=== PATIENT | female | born 1990 | race Caucasian/White ===

== ENCOUNTER 2019-08-31 23:28 | Emergency (ER) | payer SELFPAY ==
[~2019-08-31] VITALS: Ht 152.4 cm; Wt 82.6 kg
[2019-08-31 23:32] VITALS: BP 105/63
--- NOTE | 2019-08-31 23:37 | NUR ---
PATIENT AMB WITH STEADY GAIT TO LOBBY.
--- NOTE | 2019-09-01 01:19 | NUR ---
PATIENT CALLED FIRST TIME. NO RESPONSE.
--- NOTE | 2019-09-01 01:30 | NUR ---
PATIENT CALLED SECOND TIME. NO RESPONSE.
--- NOTE | 2019-09-01 02:00 | NUR ---
PATIENT CALLED THIRD TIME. NO RESPONSE. LWBS
== END 2019-09-01 01:19 | disposition left against medical advice (07) ==
LOC: MED 23:28
DX: M79.605 Pain in left leg (principal); Z53.21 Procedure and treatment not carried out due to patient leaving prior to being seen by health care provider; W22.8XXA Striking against or struck by other objects, initial encounter; Y93.89 Activity, other specified; Y92.89 Other specified places as the place of occurrence of the external cause; Y99.8 Other external cause status
CPT/HCPCS: 99283

== ENCOUNTER 2019-12-20 21:00 | Emergency (ER) | payer SELFPAY ==
[~2019-12-20] VITALS: Ht 157.5 cm; Wt 87.1 kg
[2019-12-20 21:10] VITALS: BP 109/76
[2019-12-20 21:57] VITALS: BP 109/76
== END 2019-12-20 21:57 | disposition home or self-care (01) ==
LOC: MED 21:00
DX: S43.492A Other sprain of left shoulder joint, initial encounter (principal); I10 Essential (primary) hypertension; E11.9 Type 2 diabetes mellitus without complications; J45.909 Unspecified asthma, uncomplicated; Z88.6 Allergy status to analgesic agent; Y93.89 Activity, other specified; Y92.89 Other specified places as the place of occurrence of the external cause; Y99.8 Other external cause status
CPT/HCPCS: 73030; 99283; Q0092

== ENCOUNTER 2020-01-29 12:35 | Emergency (ER) | payer MEDICAID ==
[~2020-01-29] VITALS: Ht 152.4 cm; Wt 88.9 kg
[2020-01-29 12:54] VITALS: BP 111/71
--- NOTE | 2020-01-29 13:02 | NUR ---
PT C/O CONSTANT BURNING LEFT EYE PAIN FOR 3 DAYS AFTER SHINGLES ON ONSET 7 DAYS AGO. WENT TO [facility] 5 DAYS AGO AND TX WITH IBUPROFEN, ACYCLOVIR, AND PREDNISONE WITH RELIEF OF THE SHINGLES BUT THE PAIN ON THE LEFT EYE IS STILL SEVERE AT PAIN LEVEL OF 8/10. A SMALL CLUSTER OF DRY BLISTERS NOTICED ON PT'S LEFT PARANASAL AREA. VSS; PATIENT POSITIONED FOR COMFORT; ER MD MADE AWARE OF PT STATUS.
[2020-01-29] MEDS ORDERED: FLUORESCEIN OPTH STRIP 1 MG OP ONE (13:25)
[2020-01-29] MEDS ORDERED: TETRACAINE HCL/PF 0.5% OPTH 4 ML BTL OP ONE (13:25)
--- NOTE | 2020-01-29 13:25 | NUR ---
Patient ambulated to bed 7 for further care. RN re-evaluating patient at bedside.
[2020-01-29] MEDS ORDERED: TETRACAINE HCL/PF 0.5% OPTH 4 ML BTL ONE (13:26)
--- NOTE | 2020-01-29 13:46 | NUR ---
Dr. Smallwood is evaluating the patient at bedside.
[2020-01-29] MEDS ORDERED: TOMOMETER 1 DEV DEV MC ONE (14:00)
--- NOTE | 2020-01-29 14:01 | NUR ---
Dr. Smallwood is evaluating the patient at bedside.
[2020-01-29 14:54] VITALS: BP 110/68
--- NOTE | 2020-01-29 14:54 | NUR ---
Patient discharged with v/s stable. Written and verbal after care instructions given and explained. Patient alert, oriented and verbalized understanding of instructions. Ambulatory with steady gait. All questions addressed prior to discharge. ID band removed. Patient advised to follow up with PMD. Rx of norco/ gabapentin given. Patient educated on indication of medication including possible reaction and side effects. Opportunity to ask questions provided and answered.
== END 2020-01-29 14:54 | disposition home or self-care (01) ==
LOC: MED 12:35
DX: B02.29 Other postherpetic nervous system involvement (principal); J45.909 Unspecified asthma, uncomplicated; Z88.5 Allergy status to narcotic agent
CPT/HCPCS: 99283

== ENCOUNTER 2020-04-07 15:40 | Emergency (ER) | payer SELFPAY ==
[~2020-04-07] VITALS: Ht 152.4 cm; Wt 80.3 kg
[2020-04-07 16:55] VITALS: BP 108/66
--- NOTE | 2020-04-07 17:30 | NUR ---
PT AMB TO ER BED 7
[2020-04-07] MEDS ORDERED: KETOROLAC 30 MG/ML VIAL IM ONE (17:35)
--- NOTE | 2020-04-07 18:00 | NUR ---
APPLIED SLING TO LEFT SLING WITHOUT ANY ISSUES
[2020-04-07 18:13] VITALS: BP 111/68
== END 2020-04-07 18:10 | disposition home or self-care (01) ==
LOC: MED 15:40
DX: M75.22 Bicipital tendinitis, left shoulder (principal); J45.909 Unspecified asthma, uncomplicated; Z88.6 Allergy status to analgesic agent
CPT/HCPCS: 73030; 96372; 99283; J1885

== ENCOUNTER 2020-06-30 19:15 | Emergency (ER) | payer SELFPAY ==
[~2020-06-30] VITALS: Ht 152.4 cm; Wt 88.0 kg
[2020-06-30 19:23] VITALS: BP 130/72
--- NOTE | 2020-06-30 19:26 | NUR ---
To ED bed 11
[2020-06-30 19:35] VITALS: BP 130/72
--- NOTE | 2020-06-30 19:35 | NUR ---
30 YO F BIB SELF FOR C/C OF 4/10 R LOWER LEG PAIN POST SHAVING INJURY 5 DAYS AGO. PT HAS A 2.5" CUT TO HER R LOWER LEG THAT IS SCABBED OVER. NO VISABLE SWELLING SEEN, ROM INTACT. LAST TETNUS SHOT WAS 6 YEARS AGO. BED LOCKED AND IN LOWEST POSITION. SIDE RAILS X1. BED HX: ASTHMA, TRIGEMINAL NUERALGIA, SHINGLES (12/12) RX: CBD ALLERGIES TO CODEINE
--- NOTE | 2020-06-30 19:38 | NUR ---
RAD AT BEDSIDE
--- NOTE | 2020-06-30 19:49 | NUR ---
NIKHIL SOLITARIO AT BEDSIDE
[2020-06-30] MEDS: KETOROLAC 30 MG/ML VIAL IM ONE (20:04)
--- NOTE | 2020-06-30 20:27 | NUR ---
ULTRASOUND AT BEDSIDE
--- NOTE | 2020-06-30 20:58 | NUR ---
Patient discharged with v/s stable. Written and verbal after care instructions given and explained. Patient alert, oriented and verbalized understanding of instructions. Ambulatory with steady gait. All questions addressed prior to discharge. ID band removed. Patient advised to follow up with PMD. Rx of naproxen and keflex given. Patient educated on indication of medication including possible reaction and side effects. Opportunity to ask questions provided and answered.
== END 2020-06-30 20:58 | disposition home or self-care (01) ==
LOC: MED 19:15
DX: L03.115 Cellulitis of right lower limb (principal); M25.571 Pain in right ankle and joints of right foot; J45.909 Unspecified asthma, uncomplicated; Z88.6 Allergy status to analgesic agent
CPT/HCPCS: 73610; 93971; 96372; 99284; J1885; Q0092

== ENCOUNTER 2021-02-13 18:45 | Emergency (ER) | payer SELFPAY ==
[~2021-02-13] VITALS: Ht 152.4 cm; Wt 89.4 kg
[2021-02-13 18:52] VITALS: BP 111/56
--- NOTE | 2021-02-13 19:19 | NUR ---
30 Y/O F BIB SELF FROM HOME, PT C/O LOWER BACK PAIN FOR 1 WEEK AND NOW RADIATES TO RUQ AND RLQ OF ABD. PT DESCRIBES PAIN CONSTANT AND SHARP AND HAS A PAIN SCALE 8/10. PT VERBALIZES NAUSEA, BUT NO VOMITING. DENIES SOB, CHEST PAIN, FEVERS. PT PUT ON GOWN. SAFETY MEASURES IN PLACE. WILL CONTINUE TO MONITOR. PMH: ASTHMA, Trigeminal neuralgia, SHINGLES ALLERGY: CODEINE (EMESIS EPISODE) MED: ALBUTEROL, CBD OIL
[2021-02-13 19:28] LABS: APPEARANCE,URINE CLEAR (CLEAR); BILIRUBIN,URINE NEGATIVE (NEGATIVE); BLOOD, URINE TRACE-I (NEGATIVE); COLOR,URINE YELLOW (YELLOW); LEUKOCYTE ESTERASE ,URINE NEGATIVE (NEGATIVE); NITRITE, URINE NEGATIVE (NEGATIVE); PH,URINE 5.5 (5.0-9.0); UGLUCOSE NEGATIVE (NEGATIVE)
--- NOTE | 2021-02-13 19:35 | NUR ---
IV ACCESS STARTED ON LEFT AC G20 PATENT AND INTACT, BLOOD SAMPLE OBTAINED WELL AND SENT TO LAB
[2021-02-13] MEDS: NACL 0.9% 1,000 ML IV ONE (19:41)
[2021-02-13] MEDS: KETOROLAC 30 MG/ML VIAL IVP ONE (19:42)
[2021-02-13 19:43] LABS: RBC,URINE 0-5 /HPF (0-5)
[2021-02-13] MEDS: ONDANSETRON 4 MG/2 ML VIAL IVP ONE (19:43)
[2021-02-13 19:44] LABS: WBC,URINE 0-5 /HPF (0-5)
[2021-02-13 19:53] LABS: BASOPHILS % (AUTO) 0.5 % (0.0-2.0); EOSINOPHILS # (AUTO) 0.2 K/uL (0-0.4); EOSINOPHILS % (AUTO) 2.2 % (0.0-4.0); HEMATOCRIT 38.1 % (36-48); HEMOGLOBIN 12.8 g/dL (12.0-16.0); LYMPHOCYTES # (AUTO) 2.6 K/uL (2.5-16.5); LYMPHOCYTES % (AUTO) 32.1 % (20.5-51.1); MEAN CORPUSCULAR HEMOGLOBIN 31 pg (27-31); MEAN CORPUSCULAR HGB CONC 34 g/dL (33-37); MEAN CORPUSCULAR VOLUME 90.8 fL (80-94); MONOCYTES # (AUTO) 0.6 K/uL (0.8-1.0); MONOCYTES % (AUTO) 7.9 % (1.7-9.3); NEUTROPHILS # (AUTO) 4.7 K/uL (1.8-7.7); NEUTROPHILS % (AUTO) 57.3 % (42.2-75.2); PLATELET COUNT (AUTO) 292 K/uL (140-450); RED BLOOD CELL COUNT(AUTO) 4.19 MIL/uL (4.20-5.40); RED CELL DISTRIBUTION WIDTH 12.9 % (11.6-13.7); WHITE BLOOD COUNT (AUTO) 8.2 K/uL (4.8-10.8)
[2021-02-13 20:08] LABS: ALBUMIN 3.5 g/dL (3.4-5.0); ANION GAP 12.6 (8-16); CREATININE 0.7 mg/dL (0.6-1.3); POTASSIUM 3.6 mmol/L (3.5-5.1); TOTAL BILIRUBIN 0.1 mg/dL (0.0-1.0)
--- NOTE | 2021-02-13 21:12 | NUR ---
PT BACK FROM CT
--- NOTE | 2021-02-13 22:55 | NUR ---
ULTRASOUND AT BEDSIDE
[2021-02-14] MEDS ORDERED: NAPR-54 PO (00:31)
[2021-02-14 00:51] VITALS: BP 111/56
--- NOTE | 2021-02-14 00:51 | NUR ---
Patient discharged with v/s stable. Written and verbal after care instructions given and explained. Patient alert, oriented and verbalized understanding of instructions. Ambulatory with steady gait. All questions addressed prior to discharge. IV ACCESS AND ID band removed. Patient advised to follow up with PMD. Rx of NAPROSYN given. Patient educated on indication of medication including possible reaction and side effects. Opportunity to ask questions provided and answered.
== END 2021-02-14 00:51 | disposition home or self-care (01) ==
LOC: MED 18:45
DX: N83.201 Unspecified ovarian cyst, right side (principal); N83.202 Unspecified ovarian cyst, left side; J45.909 Unspecified asthma, uncomplicated; Z88.5 Allergy status to narcotic agent
CPT/HCPCS: 36415; 74176; 76856; 80053; 81001; 81003; 81025; 82150; 83690; 85025; 93976; 96361; 96374; 96375; 99285; J1885; J2405; J7030